=== PATIENT | male | born 1960 | race Caucasian/White ===

== ENCOUNTER 2016-12-10 16:18 | Emergency (ER) | payer BC ==
[~2016-12-10] VITALS: Ht 180.3 cm; Wt 100.3 kg
[~2016-12-10 16:18] MED LIST: ADVAIR 250/501 DISK IH; Aspirin Chewable PO; CYANOCOBALAM1000 MCG PO; EFFEXOR XR75 MG PO; MULTIVITAMINS1 EA11 PO; NEURONTIN300 MG PO; PRAVASTATIN SOD40 MG PO; PROZAC40 MG PO; Proventil,Ventolin H IH; XANAX0.5 MG PO; Xanax PO; ZYRTEC10 M2 PO; celeBREX PO
[2016-12-10 21:57] VITALS: BP 145/80
[2016-12-14] MEDS ORDERED: DAILY VITE1 EAC1 PO (20:32)
[2016-12-14] MEDS ORDERED: CYANOCOBALAM1000 MCG PO (20:32)
[2016-12-14] MEDS ORDERED: FENOFIBRATE160 M1 PO (20:33)
[2016-12-14] MEDS ORDERED: PRAVASTATIN SOD40 MG PO (20:33)
[2016-12-14] MEDS ORDERED: MONTELUKAST SOD10 MG PO (20:33)
[2016-12-14] MEDS ORDERED: VENTOLIN HFA18 GM IH (20:34)
[2016-12-14] MEDS ORDERED: LYRICA50 MG PO (20:38)
[2016-12-14] MEDS ORDERED: CALCIUM + D SO1 EACH PO (20:39)
[2016-12-14] MEDS ORDERED: PROTONIX40 MG PO (20:39)
[2016-12-14] MEDS ORDERED: FLOVENT DISKUS1 DIS2 IH (20:39)
== END 2016-12-10 21:59 | disposition home or self-care (01) ==
LOC: EME 16:18
DX: M79.604 Pain in right leg (principal); M79.89 Other specified soft tissue disorders; J45.909 Unspecified asthma, uncomplicated
CPT/HCPCS: 73590; 93971; 99281; 99284